=== PATIENT | male | born 1990 | race Caucasian/White ===

== ENCOUNTER 2016-09-25 10:47 | Emergency (ER) | payer OTHER ==
[~2016-09-25] VITALS: Ht 175.3 cm; Wt 61.2 kg
[~2016-09-25 10:47] MED LIST: NO MEDICATIONS; VICODIN 5/1 TAB 5/50 PO; ZOFRAN ODT4 MG PO
== END 2016-09-25 12:05 | disposition home or self-care (01) ==
LOC: CFTX 10:47 → CED 10:47 → CFTX 11:12
DX: S61.412A Laceration without foreign body of left hand, initial encounter (principal); F17.210 Nicotine dependence, cigarettes, uncomplicated; W45.8XXA Other foreign body or object entering through skin, initial encounter; Y92.009 Unspecified place in unspecified non-institutional (private) residence as the place of occurrence of the external cause
CPT/HCPCS: 12002; 99283